=== PATIENT | male | born 1935 | race Caucasian/White ===

== ENCOUNTER 2017-02-19 08:14 | Inpatient (IN) | payer MEDICARE, BC ==
[~2017-02-19] VITALS: Ht 182.9 cm; Wt 92.4 kg
--- NOTE | ~2017-02-19 | HP ---
PATIENT'S NAME: MYAH MENDEZ [facility] AGE: 81 Y [address] ROOM: [place] [id number] LOCATION: GPCU ADMIT DATE: 02/19/2017 History & Physical DISCHARGE DATE: FAMILY PHYSICIAN: ROBERT CASTELLANOS MD ATTENDING PHYSICIAN: Carolina YANG DATE OF SERVICE: CHIEF COMPLAINT: Diarrhea. HISTORY OF PRESENT ILLNESS: The patient is an 81-year-old gentleman with history of CAD status post CABG, who presents here with diarrhea and fever. The patient reports that he started experiencing acute diarrhea yesterday around 4:00 a.m. He reports that he had multiple episodes of watery diarrhea, nonbloody with subsequent lower abdominal cramping and nausea and vomiting. The patient reports that his abdominal plain was lower abdominal pain, dull and cramping in quality. He rated the pain at 3/10 during this event. He reports that he does not have any abdominal pain currently. The patient reports that he also had some fever and measured fever at home, was 102.7. The patient continued to have multiple, greater than 12 diarrhea a day and was seen by his primary care physician and was started on Cipro and Flagyl with the patient reports that he had some improvement, but continued to have multiple diarrheas and continued to have some fever. He also reports of poor urine output. He also reports that he had low appetite during this events. Of note, the patient went fishing on morning at [facility] and reports that he caught catfish and white cadet. However, he reports that he did not cook these fishes and reports that he placed them in a fridge. He denies drinking from fresh water, denies drinking from well water, denies any sick contacts or contact with pets or animal except the fish. Denies recent travel history. PAST MEDICAL HISTORY: 1. CAD. 2. Hypertension. 3. Hyperlipidemia. PAST SURGICAL HISTORY: 1. CABG. 2. Hernia repair. 3. PCI. FAMILY HISTORY: PATIENT'S NAME: MYAH MENDEZ [facility] AGE: 81 Y [address] ROOM: [address] [address] LOCATION: GPCU ADMIT DATE: 02/19/2017 History & Physical DISCHARGE DATE: FAMILY PHYSICIAN: ROBERT CASTELLANOS MD ATTENDING PHYSICIAN: Carolina YANG Father of old age. He reports that mother of heart disease. SOCIAL HISTORY: Denies smoking, denies drinking. 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 MEDICATIONS: Currently being reconciled. REVIEW OF SYSTEMS: All systems have been reviewed and are negative except for what I mentioned in the HPI. PHYSICAL EXAMINATION: VITAL SIGNS: Temperature 101.6, blood pressure 148/68, heart rate 83, respiratory rate 22, and saturating 93% on room air. GENERAL APPEARANCE: The patient sitting on the bed in no acute distress. HEENT: Head; normocephalic and atraumatic. Eyes; sclerae nonicteric. Mouth; dry oral mucosa. Nose; no nasal discharge. Ears; no ear discharge. CHEST: Clear to auscultation bilaterally. HEART: Regular rate and rhythm. No murmurs, rubs, or gallops. ABDOMEN: Bowel sounds active. Nontender and nondistended. No guarding. SKIN: Warm to touch. No obvious lesion noted. MUSCULOSKELETAL: Range of motion intact. No obvious joint effusion. KILN CLEANER: Alert and oriented x3. Motor and sensory grossly intact. LABORATORY DATA AND IMAGING STUDIES: Sodium of 132, bicarbonate of 21, potassium of 3.1, INR of 1.1, creatinine of 1.4, and BUN of 19. White blood cell count of 12.1, hemoglobin of 14.3, absolute neutrophil count elevated at 10.6, and platelets of 167,000. CRP of 10.9, and procalcitonin of 0.51. Stool was negative for C. difficile. Negative for Giardia and Cryptosporidium antigen. Blood culture, pending. Shigella, pending. Positive occult blood in stool and positive fecal white blood cell count. CT of the abdomen shows fluid throughout the large and small bowel, but without obstruction, very mild edema around the ascending colon within the mesentery. Chest x-ray, no acute cardiopulmonary changes. ASSESSMENT AND PLAN: 1. Severe sepsis. The patient is an 81-year-old gentleman with history of coronary artery disease, status post coronary artery bypass grafting, who presents here today with history of diarrhea, fever, elevated white blood cell count, elevated procalcitonin, elevated CRP, and end-organ damage of acute kidney injury with creatinine of 1.4 from baseline of 0.9 to 1.0. The patient also failed outpatient treatment with oral antibiotics. We PATIENT'S NAME: MYAH MENDEZ [facility] AGE: 81 Y [address] ROOM: [id number] [place] [address] [facility]: [facility] ADMIT DATE: 02/19/2017 History & Physical DISCHARGE DATE: FAMILY PHYSICIAN: ROBERT CASTELLANOS MD ATTENDING PHYSICIAN: Carolina YANG will admit the patient as an inpatient as the patient failed outpatient treatment. We will start IV Flagyl 500 mg t.i.d. and Levaquin 500 mg daily. We will trend lactate as lactate is elevated and lactate until normalizes. The patient has received 2 L IV bolus. We will continue with lactate Ringer 100 mL an hour. We will await for blood culture and Shigella toxin. We will also add ova and parasite, stool for Yersinia, stool from Entamoeba histolytica, and stool for Vibrio cholerae as the patient has had fishing recently in the fresh water prior to his presentation. We will follow patient empirically. For now, we will hold off antidiarrheal medication as the patient appears to be septic. We will follow the patient closely. 2. Acute kidney injury. Etiology most likely to severe sepsis and prerenal due to diarrhea. We will treat underlying etiology and continue IV fluids. 3. Metabolic alkalosis, etiology secondary to diarrhea. We will treat underlying etiology and we will start the patient on lactated Ringer. 4. Hyponatremia of 132. Etiology most likely secondary to hypovolemia and to continue IV fluids. 5. Coronary artery disease status post coronary artery bypass grafting, stable. Continue aspirin and statin. 6. Hyperlipidemia. To continue statin. We will actually change the patient's simvastatin to Lipitor 40 mg. Greater than 60 minutes were spent in the patient's care. Case was discussed with Dr. Anderson, our ED physician. Assessment and plan was discussed with family. We will admit the patient for severe sepsis secondary to diarrhea most likely due to bacterial in etiology. We will continue antibiotic use. Code status on admission was full code. TREY ROCA MD AD/modl /[id number]: [id number] T: [id number] HISTORY & PHYSICAL
--- NOTE | ~2017-02-19 | DS ---
PATIENT'S NAME: MYAH MENDEZ [facility] AGE: 81 Y [address] ROOM: [id number] [place], [place] [address] LOCATION: GPCU ADMIT DATE: 02/19/2017 Discharge Summary DISCHARGE DATE: 02/21/2017 FAMILY PHYSICIAN: Juan You MD ATTENDING PHYSICIAN: Elizabeth Figueroa FINAL DIAGNOSES: 1. Severe sepsis secondary to Salmonella. 2. Salmonella diarrhea. 3. Acute kidney injury. 4. Metabolic acidosis. 5. Coronary artery disease. 6. Essential hypertension. 7. Dyslipidemia. HISTORY: In short, the patient presented with a greater than 24-hour history of severe diarrhea with urgency. He was found to be in acute renal failure in the emergency room. The patient was admitted to PCU. LABORATORY DATA: Sodium on admission was 132, discharge 138; potassium on admission was 3.7 and remained stable; chloride on admission was 102, discharge 106; CO2 on admission 21, discharge 26; BUN on admission was 19, discharge 11; creatinine on admission 1.4; discharge 1. His alkaline phosphatase on admission was 58, AST 19, ALT 17, remained stable. C-reactive protein was 10.9. White blood cell count on admission was 12.1 with 87.7% neutrophils, hemoglobin 14.3, hematocrit 40.1, most prior to discharge white blood cell count 6.8, hemoglobin 13.1, hematocrit 38.2, platelet count 147 with a normal differential. Procalcitonin on admission was 0.5. Stool panel was positive for Salmonella. X-RAY DATA: Chest x-ray on admission was negative for any acute process. CT scan of the abdomen and pelvis done in the ER showed fluid throughout his large and small bowels without obstruction. He had edema in the ascending colon and mesentery. HOSPITAL COURSE: The patient was admitted to the hospital with severe sepsis. He was admitted to PCU and was started on IV Levaquin and Flagyl. Stool panel was obtained. He was given aggressive IV hydration. His stool did return positive for Salmonella. The Flagyl was discontinued. On the second hospital day, his white blood cell count had normalized, his creatinine was improving. He still continued to have significant loose stools. On the morning of discharge, the patient noted that the volume of stool was much less and still continued to be loose. He denied being lightheaded or dizzy. He had been able to ambulate in the herman. He had actually eaten a regular diet and tolerated it without any difficulty. It was felt that he was stable for PATIENT'S NAME: MYAH MENDEZ [facility] AGE: 81 Y [address] ROOM: [place] [address] LOCATION: GPCU ADMIT DATE: 02/19/2017 Discharge Summary DISCHARGE DATE: 02/21/2017 FAMILY PHYSICIAN: Juan You MD ATTENDING PHYSICIAN: Elizabeth Figueroa discharge and discharged to home. DISCHARGE INSTRUCTIONS: No fresh fruit or raw veggies. To follow up with Dr. You in 2-3 days. He is encouraged to eat yogurt and drink plenty of fluids. MEDICATIONS: 1. Zestril 2.5 mg at bedtime. 2. Aspirin 81 mg daily. 3. Zocor 40 mg at bedtime. 4. Finasteride 5 mg at bedtime. 5. Extra-Strength Tylenol 500 mg every 6 hours as needed. 6. Multivitamin daily. 7. Vitamin D 2000 units daily. 8. Cipro 500 mg twice daily. He is to come to complete a course of antibiotics that he had been given prior to admission. 9. Claritin 10 mg daily as needed. 10. Delsym, cold and cough as needed. OVERALL PROGNOSIS: At discharge is good. I did discuss this with the patient and his family and they did voice understanding. GILMER VALLE MD LAW/modl /[id number] d: 02/21/172234 t: 02/24/17 1044, DISCHARGE SUMMARY
--- NOTE | ~2017-02-19 | ER ---
PATIENT'S NAME: MYAH MENDEZ [facility] AGE: 81 Y [address] ROOM: [place] [address] LOCATION: GPCU ADMIT DATE: 02/19/2017 ER/Outpatient Report DISCHARGE DATE: FAMILY PHYSICIAN: ROBERT CASTELLANOS MD ATTENDING PHYSICIAN: Carolina JOHNSON CHIEF COMPLAINT: Vomiting and frequent copious diarrhea. HISTORY OF PRESENT ILLNESS: The patient states that since yesterday morning, he has been dealing with diarrhea. Often times, he is incontinent of his diarrhea. He has been having some fevers with it. He last took some Tylenol this morning. He also has had some vomiting recently. There was concern that he is unable to keep up with his fluids. He was seen yesterday by his primary care doctor, Dr. Castellanos. He was started on Cipro and Flagyl and labs were obtained. No other acute issues. PAST MEDICAL HISTORY: Documented on the record and reviewed by me. SOCIAL HISTORY: Documented on the record and reviewed by me. MEDICATIONS: Documented on the record and reviewed by me. ALLERGIES: DOCUMENTED ON THE RECORD AND REVIEWED BY ME. REVIEW OF SYSTEMS: All systems were reviewed and negative except as noted in the HPI. PHYSICAL EXAMINATION: VITAL SIGNS: Blood pressure 148/65, pulse 83, respiratory rate is 22, temperature 101.6, SpO2 is 93% on room air. Pain is minimal. GENERAL: An age-appropriate male, tired appearance, no acute pain or distress. NEUROLOGIC: Awake and alert. GCS appears to be 15. No focal deficits. No asymmetry. HEENT: Normocephalic, atraumatic. Eyes are PERRL. Oropharynx is slightly dry. No erythema or exudates. NECK: Supple. Trachea is midline. CHEST: Heart is regular rate and rhythm. No obvious murmurs. LUNGS: Grossly clear to auscultation bilateral with no rhonchi, wheezes, or PATIENT'S NAME: MYAH MENDEZ [facility] AGE: 81 Y [address] ROOM: [address] [address] LOCATION: GPCU ADMIT DATE: 02/19/2017 ER/Outpatient Report DISCHARGE DATE: FAMILY PHYSICIAN: ROBERT CASTELLANOS MD ATTENDING PHYSICIAN: TREY,Dagmawe rales. ABDOMEN: Slightly distended with no focal rebound or guarding. Diffuse tenderness. BACK: Normal to inspection and palpation. EXTREMITIES: Warm and well perfused with no erythema or edema. No deformities. SKIN: Clean, dry, and intact. No obvious rashes. LABORATORY DATA AND X-RAYS: Stool is Hemoccult positive with moderate white blood cells; Giardia, Cryptosporidium, and C. diff are negative. Procalcitonin is 0.51. CMS: Sodium of 132, creatinine of 1.4, GFR is 48. CK-MB and troponin are not elevated. CRP is 10.9. CBC: White count 12.1 with 10.6 neutrophils, hemoglobin is 14.3, platelets 167, INR is 1.1. Serum lactate is 2.0. EKG is sinus rhythm, first-degree heart block, rate of 80 with normal intervals and axis otherwise. CT abdomen without contrast secondary to contrast allergy with diffuse colitis but no diverticulitis or evidence of toxic megacolon. IMPRESSION: 1. Likely infectious diarrhea, viral versus bacterial, unclear etiology. 2. Fever. 3. Presumed sepsis, onset at 8:44 a.m. based on laboratory values in the setting of fever with leukocytosis greater than 12,000. PLAN: The patient has acute kidney injury as labs from the clinic were reviewed and the patient has increased his creatinine to meet the definition of acute kidney injury today. He was treated with Zofran, Tylenol, and 2 L of fluid. He began to feel much better but given his findings, he will be admitted for further evaluation and treatment for the above issues. All questions were answered, and the hospitalist, Dr. Johnson, will take care of him at that time. MD ROLANDA ARDON/iggy /[id number] d: 02/19/17 2328 t: 03/01/17 0702, OUTPATIENT REPORT
[~2017-02-19 08:14] MED LIST: ASPIRIN LO-DOSE81 MG PO; FINASTERIDE5 MG PO; PRINIVIL OR ZES10 MG PO; PROTONIX20 MG PO; SV FLAXSEED OI1 EACH PO; THERA-VITE W/ B1 TAB PO; TYLENOL EXTRA500 MG PO; VITAMIN D-32000 UNI1 PO; ZESTRIL2.5 MG PO; ZOCOR40 MG PO
[2017-02-19 08:54] LABS: BASOPHIL % 0.1 %; HEMATOCRIT 40.1 % (33.0-50.0); HEMOGLOBIN 14.3 g/dL (11.0-16.0); IMMATURE GRANULOCYTE % 0.3 %; LYMPHOCYTE # 0.8 K/uL (0.8-4.0); LYMPHOCYTE % 6.6 %; MCH 34.9 pg (27.0-34.0); MCHC 35.7 gm/dL (32.0-36.5); MCV 97.8 fl (83.0-98.0); MONOCYTE # 0.6 K/uL (0.0-1.0); MONOCYTE % 5.3 %; MPV 8.8 fl (9.4-12.4); NEUTROPHIL # (ANC) 10.6 K/uL (1.4-9.0); NEUTROPHIL % 87.7 %; NRBC % 0 /100WBC (0-0.00); PLATELET COUNT 167 K/uL (150-450); RDW-CV 11.7 % (11.9-14.6); WBC 12.1 K/uL (4.0-11.0)
[2017-02-19 09:00] LABS: INR - (THERAPEUTIC) 1.12 (0.92-1.07); PROTIME 11.8 SECONDS (9.8-11.4); PTT 27 SECONDS (25-32)
[2017-02-19 09:14] LABS: ALK PHOS 58 IU/L (33-138); ALT 17 IU/L (12-78); ANION GAP 12.7 (10.0-19.0); AST 19 IU/L (10-40); BLOOD UREA NITROGEN 19 mg/dL (6-24); CALCIUM 7.7 mg/dL (8.5-10.5); CHLORIDE 102 mMol/L (96-110); CO2 21 mMol/L (22-32); CREATININE 1.4 mg/dL (0.6-1.3); ESTIMATED GFR (MDRD EQUATION) 48; POTASSIUM 3.7 mMol/L (3.7-5.1); SODIUM 132 mMol/L (135-145); TOTAL BILIRUBIN 0.9 mg/dL (0.0-1.5); TOTAL PROTEIN 6.8 g/dL (6.0-8.4)
[2017-02-19] MEDS ORDERED: CIPRO500 MG PO (14:56)
[2017-02-19] MEDS ORDERED: CLARITIN10 MG PO (14:57)
[2017-02-19] MEDS ORDERED: DELSYM COUGH+C180 ML PO (14:57)
[2017-02-19] MEDS ORDERED: FLAGYL500 MG PO (14:57)
--- NOTE | 2017-02-19 15:04 | NUR ---
Pt is 81 y/o male admit for sepsis/acute diarrhea for hospitalist. Allergies to contrast dye and ticlid. Red and yellow bracelets. Resides at home with his . Hx CABG,htn,hypercholest,stents x4,urinary urgency and frequency. Pt alert and oriented x3. reports he started having diarrhea at 0400 yesterday am and then a fever of 102 last night. She states pt's diarrhea is starting to slow down/subside today.
--- NOTE | 2017-02-19 16:03 | NUR ---
Significant Event:A/O X 3. NSR. O2 sats > 90% on RA. No nausea or vomiting at this time, "diarrhea is slowing down". Cdiff negative. REsting in bed. SBA to ambulate to the toilet. Family is updated and supportive at the bedside. Follow up:Pending stool test results. WIll start IVF when available in [facility].
[2017-02-19 18:19] LABS: C DIFFICILE TOXIN A/B Not Detected (Not Detect); CAMPYLOBACTER SPECIES Not Detected (Not Detect); PLESIOMONAS SPECIES Not Detected (Not Detect); SALMONELLA SPECIES DETECTED (Not Detect)
[2017-02-19 18:20] LABS: ADENOVIRUS F 40/41 Not Detected (Not Detect); ASTROVIRUS Not Detected (Not Detect); CRYPTOSPORIDIUM Not Detected (Not Detect); CYCLOSPORA CAYETANENSIS Not Detected (Not Detect); E. COLI (EPEC) Not Detected (Not Detect); E. COLI (ETEC) Not Detected (Not Detect); E. COLI (STEC) Not Detected (Not Detect); ENTAMOEBA HISTOLYTICA Not Detected (Not Detect); GIARDIA LAMBLIA Not Detected (Not Detect); NOROVIRUS GI/ GII Not Detected (Not Detect); ROTAVIRUS A Not Detected (Not Detect); SAPOVIRUS Not Detected (Not Detect); SHIGELLA AND EIEC Not Detected (Not Detect); VIBRIO CHOLERAE Not Detected (Not Detect); VIBRIO SPECIES Not Detected (Not Detect); YERSINIA ENTEROCOLITICA Not Detected (Not Detect)
[2017-02-20 03:42] LABS: HEMATOCRIT 35.4 % (33.0-50.0); HEMOGLOBIN 12.5 g/dL (11.0-16.0); MCH 34.4 pg (27.0-34.0); MCHC 35.3 gm/dL (32.0-36.5); MCV 97.5 fl (83.0-98.0); MPV 8.8 fl (9.4-12.4); RBC 3.63 M/uL (3.50-5.50); RDW-CV 11.7 % (11.9-14.6); WBC 7.4 K/uL (4.0-11.0)
[2017-02-20 03:43] LABS: PLATELET COUNT 133 K/uL (150-450)
[2017-02-20 03:58] LABS: ALBUMIN 2.4 gm/dL (3.5-5.0); ANION GAP 11.5 (10.0-19.0); CALCIUM 7.2 mg/dL (8.5-10.5); CREATININE 1.2 mg/dL (0.6-1.3); POTASSIUM 3.5 mMol/L (3.7-5.1); TOTAL BILIRUBIN 0.5 mg/dL (0.0-1.5); TOTAL PROTEIN 5.6 g/dL (6.0-8.4)
[2017-02-20 04:08] LABS: ABSOLUTE NEUTROPHIL CT (ANC) 5.9 K/uL (1.4-9.0); BANDED NEUTROPHIL # 1.3 K/uL (0.0-0.1); BANDED NEUTROPHILS % 17 %; LYMPHOCYTE # 1.3 K/uL (0.8-4.0); LYMPHOCYTE % 17 %; MONOCYTE # 0.2 K/uL (0.0-1.0); SEGMENTED NEUTROPHIL # 4.7 K/uL (1.4-9.0); SEGMENTED NEUTROPHIL % 63 %
--- NOTE | 2017-02-20 04:57 | NUR ---
Significant Event: A/O x3. 99.1-100.0 temps. Gave tylenol x1. VSS on RA. SBP 110-130s. HR 70-80s. No nausea. Tolerated supper well. Flagyl dc'd. LR @ 100/hr continuous. No c/o pain. Up standby assist to bathroom. 2 liquid BM dark green/brown. Follow up: Continue to monitor per plan of care.
--- NOTE | 2017-02-20 17:38 | NUR ---
Significant Event: A/O x3. HRs 70s-80s, SBPs 100s-130s. O2 sats >90% on RA. No N/V, tolerating 100% of low fat diet. Large volume BMs 300 mls at a time this AM, liquid/blackish stool, Imodium given one time stools less frequent and smaller. IV levaquin and 60 meq IV Potassium infusing. Max temp 98.9. LR infusing at 100 ml/hr. Voiding without problems. No pain reported. Showered and shampooed this AM. Ambulates ad benji in room. Family is updated and supportive at the bedside. Follow up: IV antibiotics, monitor electrolytes.
--- NOTE | 2017-02-20 18:04 | NUR ---
D: I HAVE REIVEWED AND AGREE WITH CHARGING COMPLETED BY IDRIS MIRELES.
[2017-02-21 03:46] LABS: BASOPHIL % 0.4 %; EOSINOPHIL % 0.8 %; HEMATOCRIT 38.2 % (33.0-50.0); HEMOGLOBIN 13.1 g/dL (11.0-16.0); IMMATURE GRANULOCYTE % 0.2 %; LYMPHOCYTE # 1.6 K/uL (0.8-4.0); MCH 33.6 pg (27.0-34.0); MCHC 34.3 gm/dL (32.0-36.5); MCV 97.9 fl (83.0-98.0); MONOCYTE # 0.5 K/uL (0.0-1.0); MONOCYTE % 11.2 %; MPV 8.7 fl (9.4-12.4); NEUTROPHIL # (ANC) 2.6 K/uL (1.4-9.0); NEUTROPHIL % 53.4 %; NRBC % 0 /100WBC (0-0.00); PLATELET COUNT 147 K/uL (150-450); RDW-CV 11.9 % (11.9-14.6); WBC 4.8 K/uL (4.0-11.0)
--- NOTE | 2017-02-21 04:11 | NUR ---
Significant Event:A/Ox3. VSS on RA. Up in halls with family x2. Up ad benji in the room. IVF discontiued. Patient tolerating diet and fluids very well. No c/o of nausea. Only 1 stool after immodium given. Pending AM labs. Follow up:Possbile discharge to home? Meds on chart for .
[2017-02-21 04:12] LABS: ALBUMIN 2.5 gm/dL (3.5-5.0); ALK PHOS 52 IU/L (33-138); ALT 24 IU/L (12-78); ANION GAP 9.7 (10.0-19.0); AST 34 IU/L (10-40); BLOOD UREA NITROGEN 11 mg/dL (6-24); CALCIUM 7.9 mg/dL (8.5-10.5); CHLORIDE 106 mMol/L (96-110); CO2 26 mMol/L (22-32); ESTIMATED GFR (MDRD EQUATION) > 60; POTASSIUM 3.7 mMol/L (3.7-5.1); SODIUM 138 mMol/L (135-145); TOTAL BILIRUBIN 0.5 mg/dL (0.0-1.5); TOTAL PROTEIN 6.1 g/dL (6.0-8.4)
--- NOTE | 2017-02-21 14:48 | NUR ---
PATIENT A/OX3, VSS ON ROOM AIR. PT. IS UP AD GOLDEN IN ROOM. NO COMPLAINTS OF PAIN THIS SHIFT. IV REMOVED FROM RIGHT FOREARM WITHOUT DIFFICULTLY. AND DAUGHTER HERE. DISMISSAL INSTRUCTIONS GONE OVER WITH PATIENT. INFORMED PATIENT ON NO FRESH FRUITS OR RAW VEGGIES, EATING A YOGURT DAILY AND DRINKING PLENTY OF FLUIDS. PT. TO CALL AND MAKE F/U APT. WITH DR. CASTELLANOS TOMORROW. NO FURTHER QUESTIONS AT THIS TIME. ALL BELONGINGS SENT HOME WITH PATIENT AND FAMILY. PHARMACY HERE TO TAKE OUT PO FLAGYL OUT OF PILL BOX, PER FAMILY REQUEST.
== END 2017-02-21 14:50 | disposition disaster alternative care site (69) | DRG 872 ==
LOC: GMED 08:14 → GMSU 12:27 → GPCU 12:27
PROVIDERS: Emergency Medicine; ADMIT Internal Medicine
DX: A02.1 Salmonella sepsis (principal); N17.9 Acute kidney failure, unspecified; E87.2 Acidosis; E87.3 Alkalosis; A02.0 Salmonella enteritis; E87.1 Hypo-osmolality and hyponatremia; R65.20 Severe sepsis without septic shock; I25.10 Atherosclerotic heart disease of native coronary artery without angina pectoris; I10 Essential (primary) hypertension; E78.5 Hyperlipidemia, unspecified; Z79.82 Long term (current) use of aspirin; E86.1 Hypovolemia; Z95.1 Presence of aortocoronary bypass graft
CPT/HCPCS: J1650; J1956; J2405; J3480; J7030; J7040; J7120